=== PATIENT | female | born 1995 | race African-American/Black ===

== ENCOUNTER 2017-03-27 09:44 | Emergency (ER) | payer OTHER, BC ==
[2017-03-27 10:20] VITALS: BP 103/72; PULSE 70; TEMP 98.2; BMI 23.1
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
== END 2017-03-27 12:20 | disposition home or self-care (01) ==
LOC: JER 09:44
DX: O99.89 Other specified diseases and conditions complicating pregnancy, childbirth and the puerperium (principal); S46.811A Strain of other muscles, fascia and tendons at shoulder and upper arm level, right arm, initial encounter; V03.90XA Pedestrian on foot injured in collision with car, pick-up truck or van, unspecified whether traffic or nontraffic accident, initial encounter; Y92.414 Local residential or business street as the place of occurrence of the external cause; Y93.89 Activity, other specified; Y99.8 Other external cause status; Z3A.08 8 weeks gestation of pregnancy
CPT/HCPCS: 36415; 76815-TC; 84702; 99281-25

== ENCOUNTER 2017-06-26 14:18 | Emergency (ER) | payer BC ==
--- NOTE | 2017-06-26 14:25 | PDOC ---
Rapid Medical Evaluation Time Seen by Provider: 06/26/17 14:22 Medical Evaluation: Allergies Allergy/AdvReac Type Severity Reaction Status Date / Time No Known Allergies Allergy Verified 03/27/17 10:03 06/26/17 14:22 I have performed a brief in-person evaluation of this patient. The patient presents with a chief complaint of: @21 weeks, here w/ abd pain w/ n/v/d, no vaginal bleeding Pertinent physical exam findings:stable w/ unremarkable exam I have ordered the following:ua The patient will proceed to the ED for further evaluation. Discharge Disposition - Referrals Referrals: Padmini Mcduffie MD [Primary Care Provider] - - Patient Instructions - Post Discharge Activity
[2017-06-26 15:01] LABS: URINE APPEARANCE SLCLOUDY; URINE BILIRUBIN NEGATIVE (NEGATIVE); URINE BLOOD NEGATIVE (NEGATIVE); URINE COLOR YELLOW; URINE GLUCOSE (UA) NEGATIVE (NEGATIVE); URINE KETONE 2+ (NEGATIVE); URINE NITRITE NEGATIVE (NEGATIVE); URINE PROTEIN NEGATIVE (NEGATIVE); URINE UROBILINOGEN NEGATIVE mg/dL (0.2-1.0)
[2017-06-26 15:03] LABS: URINE LEUK ESTERASE 2+ (NEGATIVE)
[2017-06-26 15:06] LABS: EPI CELLS MODERATE /HPF (FEW); URINE MUCUS FEW
[2017-06-26] MEDS ORDERED: METOCLOPRAMIDE HCL INJECTION 10 MG/2 ML VIAL IVPB ONE (16:29)
[2017-06-26] MEDS ORDERED: SODIUM CHLORIDE 0.9% 1000 ML INFUS.BAG IV ONE (16:29)
[2017-06-26] MEDS ORDERED: METOCLOPRAMIDE HCL INJECTION 10 MG/2 ML VIAL ONE (16:34)
--- NOTE | 2017-06-26 16:35 | PDOC ---
History of Present Illness - General Chief Complaint: Nausea/Vomiting Stated Complaint: 21 WEEKS /FEVER Time Seen by Provider: 06/26/17 14:22 History Source: Patient Exam Limitations: No Limitations - History of Present Illness Initial Comments: 06/26/17 16:30 The patient is a 21F at 21 weeks who presents with abdominal pain. The patient states that at 0300 this morning she felt abdominal pain, mostly described as diffuse cramping. She then states that she had 4 bouts of vomiting and 5-6 bouts of diarrhea with her abdominal cramping, both were nonbloody and the vomit was nonbilious. She denies any vaginal bleeding and abnormal discharge. Her only complaint now is nausea. Past History - Past Medical History Allergies/Adverse Reactions: Allergies Allergy/AdvReac Type Severity Reaction Status Date / Time No Known Allergies Allergy Verified 06/26/17 14:26 Home Medications: Ambulatory Orders No122/Iron/Folic Acid [ Multi Tablet] 1 each PO DAILY 03/27/17 COPD: No - Reproductive History Is Patient Now?: Yes (#): 1 Para: 0 Therapeutic (s) & number: No Spontaneous : 0 - Immunization History Immunization Up to Date: Yes - Suicide/Smoking/Psychosocial Hx Smoking History: Never smoked Have you smoked in the past 12 months: No Information on smoking cessation initiated: No Hx Alcohol Use: No Drug/Substance Use Hx: No Substance Use Type: None Review of Systems - Review of Systems Able to Perform ROS?: Yes Comments:: 06/26/17 19:00 GENERAL/CONSTITUTIONAL: No fever or chills. No weakness. HEAD, EYES, EARS, NOSE AND THROAT: No change in vision. No ear pain or discharge. No sore throat. CARDIOVASCULAR: No chest pain, palpitations, or lightheadedness. RESPIRATORY: No cough, wheezing, shortness of breath, or hemoptysis. GASTROINTESTINAL: Positive for nausea, vomiting, abdominal cramping, and diarrhea. No constipation. GENITOURINARY: No vaginal bleeding, vaginal discharge, dysuria, frequency, hematuria, or change in urination. MUSCULOSKELETAL: No joint or muscle swelling or pain. No neck or back pain. SKIN: No rash or lesions. NEUROLOGIC: No headache, numbness, tingling, weakness, loss of consciousness, or change in strength/sensation. ENDOCRINE: No increased thirst. No abnormal weight change. HEMATOLOGIC/LYMPHATIC: No anemia, easy bleeding, or history of blood clots. ALLERGIC/IMMUNOLOGIC: No hives or skin allergy. Is the patient limited [place]ian proficient: No *Physical Exam - Vital Signs Last Vital Signs Temp Pulse Resp BP Pulse Ox 98.7 F 98 H 16 111/90 100 06/26/17 14:24 06/26/17 14:24 06/26/17 14:24 06/26/17 14:24 06/26/17 14:24 - Physical Exam Comments: 06/26/17 19:02 GENERAL: Well developed, well nourished. Awake and alert. No acute distress. HEENT: Normocephalic, atraumatic. Hearing grossly normal. Dry mucous membranes. PERRLA, EOMI. No conjunctival pallor. Sclera are non-icteric. NECK: Supple. Full ROM. No JVD. CARDIOVASCULAR: Regular rate and rhythm. No murmurs, rubs, or gallops. PULMONARY: No evidence of respiratory distress. Lungs clear to auscultation bilaterally. No wheezing, rales or rhonchi. ABDOMINAL: Soft. Gravid abdomen. Tender to deep palpation over suprapubic abdomen. Non-distended. No rebound or guarding. GENITOURINARY: No CVA tenderness bilaterally. MUSCULOSKELETAL: Normal range of motion at all joints. No bony deformities or tenderness. EXTREMITIES: No cyanosis. No clubbing. No edema. No calf tenderness. SKIN: Warm and dry. Normal capillary refill. No rashes. No jaundice. NEUROLOGICAL: Alert, awake, appropriate. Cranial nerves 2-12 intact. Normal speech. Gait is normal without ataxia. PSYCHIATRIC: Cooperative. Good eye contact. Appropriate mood and affect. ED Treatment Course - LABORATORY CBC & Chemistry Diagram: 06/26/17 16:20 06/26/17 16:20 - ADDITIONAL ORDERS Additional order review: Laboratory Results 06/26/17 14:31 Urine Color Yellow Urine Appearance Slcloudy Urine pH 5.0 Ur Specific [place] 1.027 Urine Protein Negative Urine Glucose (UA) Negative Urine Ketones 2+ H Urine Blood Negative Urine Nitrite Negative Urine Bilirubin Negative Urine Urobilinogen Negative Ur Leukocyte Esterase 2+ H Urine WBC (Auto) 1 Urine RBC (Auto) 3 Ur Epithelial Cells Moderate Urine Mucus Few Medical Decision Making - Medical Decision Making 06/26/17 18:37 The patient is a 21F at [address] Mcduffie who presents with nausea, vomiting, diarrhea. She also complains of abdominal cramping. I have given fluids and reglan to control the patient's symptoms. Pt states she feels much better but is now hungry. UA is repeated and negative. CBC and CMP WNL. Sparkle Posadas RN aware that patient is medically clear and ready to go to L and D for evaluation of the fetus. Pt is upstairs. *DC/Admit/Observation/Transfer Diagnosis at time of Disposition: Nausea and vomiting Qualifiers: Vomiting type: unspecified Vomiting Intractability: non-intractable Qualified Code(s): R11.2 - Nausea with vomiting, unspecified - Discharge Dispostion Disposition: HOME Condition at time of disposition: Stable Admit: No - Referrals Referrals: Padmini Mcduffie MD [Staff Physician] - - Patient Instructions Printed Discharge Instructions: Nausea of (Alternative Therapy) Additional Instructions: Please return to the ER if symptoms persist, worsen, or new symptoms arise. Please follow up with your primary care physician in 2-3 days. Please follow up with your OB next week. Please return to the ER if you have any signs or symptoms of chest pain, shortness of breath, uncontrollable fever, chills, nausea, vomiting, numbness, tingling, or weakness in any part of your body, changes in vision, or slurred speech. - Post Discharge Activity
[2017-06-26 16:39] LABS: BASO % 0.1 % (0-2.0); HEMATOCRIT 32.9 % (32.4-45.2); HEMOGLOBIN 10.9 GM/dL (10.7-15.3); LYMPH % 5.3 % (8-40); MCH 31.8 pg (25.7-33.7); MCHC 33.2 g/dl (32.0-36.0); MEAN CELL VOLUME 95.7 fl (80-96); MEAN PLT VOLUME 8.3 fl (7.5-11.1); MONO % 4.7 % (3.8-10.2); NEUT % 89.9 % (42.8-82.8); PLATELET COUNT 214 K/MM3 (134-434); RBC 3.44 M/mm3 (3.60-5.2); RDW 13.2 % (11.6-15.6); WHITE BLOOD COUNT 9.6 K/mm3 (4.0-10.0)
[2017-06-26 17:10] LABS: ANION GAP 13 (8-16); BLOOD UREA NITROGEN 8 mg/dL (7-18); CALCIUM 8.5 mg/dL (8.5-10.1); CHLORIDE 105 mmol/L (98-107); CO2 21 mmol/L (21-32); CREATININE 0.5 mg/dL (0.55-1.02); GLUCOSE,RANDOM 77 mg/dL (74-106); POTASSIUM 3.8 mmol/L (3.5-5.1); SGOT/AST 30 U/L (15-37); SGPT/ALT 32 U/L (12-78); SODIUM 139 mmol/L (136-145)
[2017-06-26 17:12] LABS: ALK PHOS 63 U/L (45-117); BILIRUBIN,TOTAL 0.7 mg/dL (0.2-1.0); TOT PROT 6.7 g/dl (6.4-8.2)
[2017-06-26 17:56] LABS: URINE APPEARANCE CLEAR; URINE BILIRUBIN NEGATIVE (NEGATIVE); URINE BLOOD NEGATIVE (NEGATIVE); URINE COLOR YELLOW; URINE GLUCOSE (UA) NEGATIVE (NEGATIVE); URINE KETONE 2+ (NEGATIVE); URINE LEUK ESTERASE NEGATIVE (NEGATIVE); URINE NITRITE NEGATIVE (NEGATIVE); URINE PROTEIN NEGATIVE (NEGATIVE); URINE UROBILINOGEN NEGATIVE mg/dL (0.2-1.0)
--- NOTE | 2017-06-26 18:31 | PDOC ---
Attending Attestation - Resident Resident Name: Cristobal Banks - ED Attending Attestation I have performed the following: I have examined & evaluated the patient, The case was reviewed & discussed with the resident, I agree w/resident's findings & plan, Exceptions are as noted - HPI HPI: 06/26/17 18:48 21 F @ 21 weeks , confirmed by prior US, presenting to ER with N+V+D x 1 day. Pt reports intermittent abdominal cramps associated with diarrhea. Denies F/C. Denies vaginal bleeding or discharge. Denies flank pain or dysuria. - Physicial Exam PE: 06/26/17 18:49 "GENERAL: Awake, alert, and fully oriented, in no acute distress HEAD: No signs of trauma EYES: PERRLA, EOMI, sclera anicteric, conjunctiva clear ENT: Auricles normal inspection, hearing grossly normal, nares patent, oropharynx clear without exudates. Moist mucosa NECK: Nontender, no stepoffs, Normal ROM, supple, no lymphadenopathy, JVD, or masses LUNGS: Breath sounds equal, clear to auscultation bilaterally. No wheezes, and no crackles HEART: Regular rate and rhythm, normal S1 and S2, no murmurs, rubs or gallops ABDOMEN: Soft, gravid, nontender, normoactive bowel sounds. No guarding, no rebound. No masses EXTREMITIES: Normal range of motion, no edema. No clubbing or cyanosis. No cords, erythema, or tenderness NEUROLOGICAL: Cranial nerves II through XII intact. 5/5 strength and sensation in all extremities, Normal speech, normal gait, normal cerebellar function SKIN: Warm, Dry, normal turgor, no rashes or lesions noted. " - Medical Decision Making 06/26/17 18:49 21 F, 21 weeks , presenting to ED with N+V+D. Likely viral gastroenteritis. Pt with benign abdomen in ER. - labs - IVF, zofran - PO trial 06/26/17 18:52 Labs wnl Pt tolerating PO Pt well appearing, vitals normal, clinically stable for transfer to L&D for heart monitoring. I discussed the physical exam findings, ancillary test results and final diagnoses with the patient. I answered all of the patient's questions. The patient was satisfied with the care received and felt comfortable with the discharge plan and treatment plan. The patient agrees to follow up with the primary care physician within 24-72 hours.
[2017-06-26] MEDS ORDERED: ACETAMINOPHEN 325 MG TABLET (FP) PO ONE (19:35)
[2017-06-26 20:06] VITALS: BP 92/59; PULSE 94; TEMP 100
== END 2017-06-26 19:55 | disposition home or self-care (01) ==
LOC: JER 14:18
PROC: 3E033GC Introduction of Other Therapeutic Substance into Peripheral Vein, Percutaneous Approach (ICD-10-PCS; principal; 2017-06-26)
DX: O26.892 Other specified pregnancy related conditions, second trimester (principal); O99.612 Diseases of the digestive system complicating pregnancy, second trimester; K52.9 Noninfective gastroenteritis and colitis, unspecified; Z3A.21 21 weeks gestation of pregnancy
CPT/HCPCS: 36415; 80053; 81003; 81015; 85025; 87086; 99283-25

== ENCOUNTER 2021-12-09 08:47 | Emergency (ER) | payer OTHER | END 2021-12-09 09:02 | disposition home or self-care (01) | LOC: JVIRT 08:47 | DX: G44.89 Other headache syndrome (principal); Z20.822 Contact with and (suspected) exposure to COVID-19 | CPT/HCPCS: C9803-CS; G2251-GT; Q3014-GT; U0003; U0005 ==